=== PATIENT | male | born 1945 | race Caucasian/White ===

== ENCOUNTER → 2018-02-04 | Day surgery (SDC) | payer MEDICARE, OTHER ==
[~2018-02-04] MED LIST: FUROSEMIDE40 MG PO; MECLIZINE HCL12.5 MG PO; METOPROLOL SUCC50 MG PO; MIDAZOLAM HCL 2 MG/2 ML VIAL ONE; OR PHACO EYE KIT ONE; PREOP PHACO EYE KIT ONE; XARELTO20 MG PO; ZESTRIL20 MG PO
== END | disposition home or self-care (01) ==
LOC: OR 07:41
PROVIDERS: ATTEND Ophthalmology
DX: I25.10 Atherosclerotic heart disease of native coronary artery without angina pectoris (principal); H25.11 Age-related nuclear cataract, right eye; I48.91 Unspecified atrial fibrillation; I10 Essential (primary) hypertension; F17.200 Nicotine dependence, unspecified, uncomplicated; Z79.02 Long term (current) use of antithrombotics/antiplatelets
CPT/HCPCS: 66984; J2250; V2632